=== PATIENT | female | born 1950 | race Caucasian/White ===

== ENCOUNTER → 2017-11-06 | Outpatient (CLI) | payer MEDICARE, OTHER | END | disposition home or self-care (01) | LOC: NUC 10:33 | DX: E05.20 Thyrotoxicosis with toxic multinodular goiter without thyrotoxic crisis or storm (principal) | CPT/HCPCS: 78014; A9516 ==

== ENCOUNTER → 2018-02-19 | Outpatient (CLI) | payer MEDICARE, OTHER | END | disposition home or self-care (01) | LOC: HKI 15:16 | DX: M17.12 Unilateral primary osteoarthritis, left knee (principal) | CPT/HCPCS: 20610; 73564-50 ==

== ENCOUNTER → 2018-06-08 | Outpatient (CLI) | payer MEDICARE, OTHER | END | disposition home or self-care (01) | LOC: HKI 13:48 | DX: M17.12 Unilateral primary osteoarthritis, left knee (principal) | CPT/HCPCS: 77073 ==

== ENCOUNTER 2018-06-19 05:15 | Observation (INO) | payer MEDICARE, OTHER ==
[2018-06-19] MEDS: TRANEXAMIC ACID 1GM/100ML(PMX) 100 ML AT CLOSING IVPB (06:00)
[2018-06-19] MEDS: CEFAZOLIN 2 GM/50 ML (PMX) 50 ML IVPB ×3 (06:00→23:53)
[2018-06-19] MEDS: LACTATED RINGER'S 1,000 ML IV* ×2 (06:00→14:00)
[2018-06-19] MEDS ORDERED: ACETAMINOPHEN 500 MG TAB PO (06:00)
[2018-06-19] MEDS: ACETAMINOPHEN 1000MG/100ML IV 100 ML IVPB (06:15)
[2018-06-19] MEDS: DEXAMETHASONE 4 MG/ML 1 ML INJ IV (06:16)
[2018-06-19] MEDS: ONDANSETRON 4 MG INJ IV ×2 (06:16→12:12)
[2018-06-19] MEDS: LANSOPRAZOLE 30 MG CAP PO (06:16)
[2018-06-19] MEDS: CELECOXIB 200 MG CAP PO (06:17)
[2018-06-19] MEDS: TRANEXAMIC ACID 1GM/100ML(PMX) 100 ML PRE-OP IVPB (07:29)
[2018-06-19] MEDS ORDERED: EPHEDrine SULFATE 50 MG/5 ML SYG IV (07:30)
[2018-06-19] MEDS ORDERED: LABETALOL HCL 20MG INJ IV (07:30)
[2018-06-19] MEDS ORDERED: HYDROmorphONE 1 MG/5 ML IV SYRINGE IV ×2 (07:30)
[2018-06-19] MEDS ORDERED: TRANEXAMIC ACID 1GM/100ML(PMX) 200 ML (07:30)
[2018-06-19] MEDS ORDERED: hydrALAzine 20 MG INJ IV (07:30)
[2018-06-19] MEDS ORDERED: DIPHENHYDRAMINE 50 MG INJ IV ×2 (07:30→11:30)
[2018-06-19] MEDS ORDERED: MEPERIDINE 25 MG INJ IV (07:30)
[2018-06-19] MEDS ORDERED: PROCHLORPERAZINE 10 MG INJ IV (07:30)
[2018-06-19] MEDS ORDERED: PROPOFOL 20 ML (07:31)
[2018-06-19] MEDS ORDERED: LIDOCAINE 2% (SDV) 5 ML INJ (07:31)
[2018-06-19] MEDS ORDERED: MIDAZOLAM 1 MG/ML 2 ML INJ (07:32)
[2018-06-19] MEDS ORDERED: FENTAnyl 50 MCG/ML VIAL ×2 (07:44→09:45)
[2018-06-19] MEDS ORDERED: CEFAZOLIN 1 GM INJ (07:50)
[2018-06-19] MEDS ORDERED: PHENYLephrine (100 MCG/ML) 5ML SYG (08:10)
[2018-06-19] MEDS ORDERED: ROPIVACAINE 0.2% 20 ML VIAL (10:56)
[2018-06-19] MEDS ORDERED: BETHANECHOL 25 MG TAB PO (11:30)
[2018-06-19] MEDS ORDERED: NA PHOSPHATE/BIPHOS 133 ML ENEMA PR (11:30)
[2018-06-19] MEDS ORDERED: NACL 0.9% 3 ML SYG IV (11:30)
[2018-06-19] MEDS ORDERED: NALOXONE (0.4 MG/ML) INJ IV (11:30)
[2018-06-19] MEDS: DOCUSATE SODIUM 100 MG CAP PO (11:53)
[2018-06-19] MEDS: LACTATED RINGER'S 1,000 ML IV ×2 (11:54→23:54)
[2018-06-19] MEDS ORDERED: CEFAZOLIN 2 GM/50 ML (PMX) 50 ML IVPB (12:00)
[2018-06-19] MEDS: FENTAnyl 50 MCG/ML VIAL IV (12:12)
[2018-06-19] MEDS: HYDROmorphONE 1 MG/5 ML IV SYRINGE IV (12:12)
[2018-06-19] MEDS: HYDROmorphONE 1 MG/ML SYG IV (15:12)
[2018-06-19] MEDS: oxyCODONE 5 MG TAB PO (20:48)
[2018-06-19] MEDS: NORTRIPTYLINE 10 MG CAP PO (20:49)
[2018-06-19] MEDS: ATORVASTATIN 20 MG TAB PO (20:49)
[2018-06-19] MEDS: GABAPENTIN 300 MG CAP PO (20:49)
[2018-06-20 05:06] LABS: ADD MAN DIFF? NO
[2018-06-20 05:07] LABS: BASOPHILS % 0.2 % (0.0-2.0); HEMATOCRIT 31.2 % (37.0-47.0); HEMOGLOBIN 9.7 g/dl (12.0-16.0); LYMPHOCYTES # 1.5 10^3/ul (0.8-2.9); LYMPHOCYTES % 11.6 % (15.0-51.0); MEAN CORPUSCULAR HEMOGLOBIN 28.4 pg (29.0-33.0); MEAN CORPUSCULAR HGB CONC 31.1 g/dl (32.0-37.0); MEAN CORPUSCULAR VOLUME 91.2 fl (82.0-101.0); MEAN PLATELET VOLUME 10.5 fl (7.4-10.4); MONOCYTE # 0.7 10^3/ul (0.3-0.9); MONOCYTES % 5.2 % (0.0-11.0); NEUTROPHIL # 10.7 10^3/ul (1.6-7.5); NEUTROPHILS % 82.7 % (39.0-77.0); PLATELET COUNT 299 10^3/UL (140-415); RED BLOOD COUNT 3.42 10^6/ul (4.20-5.40); RED CELL DISTRIBUTION WIDTH 13.3 % (11.5-14.5)
[2018-06-20 05:07] LABS: WHITE BLOOD COUNT 12.9 10^3/ul (4.8-10.8)
[2018-06-20 05:36] LABS: CHOLESTEROL 114 mg/dl (100-200); HDL CHOLESTEROL 57 mg/dl (35-98); LDL CHOLESTEROL,CALCULATED 39 mg/dl; MAGNESIUM 2.1 mg/dl (1.7-2.5); TRIGLYCERIDES 92 mg/dl (0-149)
[2018-06-20 05:36] LABS: PHOSPHORUS 3.6 mg/dl (2.5-4.9)
[2018-06-20 05:41] LABS: ANION GAP 9 (5-13); BLOOD UREA NITROGEN 9 mg/dl (7-20); CALCIUM 8.9 mg/dl (8.4-10.2); CARBON DIOXIDE 27 mmol/L (21-31); CHLORIDE 104 mmol/L (97-110); CREATININE 0.66 mg/dl (0.44-1.00); Estimated GFR > 60 mL/min (>60); GLUCOSE 130 mg/dl (70-220); POTASSIUM 4.4 mmol/L (3.5-5.1); SODIUM 140 mmol/L (135-144)
[2018-06-20 05:52] LABS: FREE T4 (FREE THYROXINE) 0.74 ng/dl (0.78-2.44)
[2018-06-20 05:55] LABS: ADD UMIC YES; UR ASCORBIC ACID NEGATIVE (NEGATIVE); UR BILIRUBIN (Dip) NEGATIVE (NEGATIVE); UR BLOOD (Dip) NEGATIVE (NEGATIVE); UR CLARITY CLEAR (CLEAR); UR COLOR YELLOW (YELLOW); UR GLUCOSE (Dip) NEGATIVE (NEGATIVE); UR KETONES (Dip) NEGATIVE (NEGATIVE); UR LEUKOCYTE ESTERASE (Dip) TRACE Leu/ul (NEGATIVE); UR NITRITE (Dip) NEGATIVE (NEGATIVE); UR RBC 2 /HPF (0-5); UR SPECIFIC GRAVITY (Dip) 1.012 (1.003-1.030); UR TOTAL PROTEIN (Dip) NEGATIVE (NEGATIVE); UR UROBILINOGEN (Dip) NEGATIVE (NEGATIVE); UR WBC 2 /HPF (0-5)
[2018-06-20 06:06] LABS: THYROID STIMULATING HORMONE 0.904 MIU/L (0.465-4.680)
[2018-06-20] MEDS: oxyCODONE 5 MG TAB PO ×3 (06:17→21:17)
[2018-06-20] MEDS: METHIMAZOLE 5 MG TAB PO (09:13)
[2018-06-20] MEDS: ASCORBIC ACID 500 MG TAB PO (09:13)
[2018-06-20] MEDS: ASPIRIN (EC) 81 MG TAB PO ×2 (09:13→21:21)
[2018-06-20] MEDS: DOCUSATE SODIUM 100 MG CAP PO ×2 (09:13→21:18)
[2018-06-20] MEDS: CALCIUM CARBONATE (600 MG CA) TAB PO (09:14)
[2018-06-20] MEDS: CEFAZOLIN 2 GM/50 ML (PMX) 50 ML IVPB (09:14)
[2018-06-20] MEDS: HYDROmorphONE 1 MG/ML SYG IV (09:22)
[2018-06-20] MEDS ORDERED: ONDANSETRON 4 MG INJ IV (11:30)
[2018-06-20] MEDS: LACTATED RINGER'S 1,000 ML IV (12:05)
[2018-06-20] MEDS: DEXAMETHASONE 4 MG/ML 1 ML INJ IV (13:45)
[2018-06-20] MEDS: ACETAMINOPHEN 500 MG TAB PO ×2 (13:45→21:17)
[2018-06-20] MEDS: ATORVASTATIN 20 MG TAB PO (21:17)
[2018-06-20] MEDS: NORTRIPTYLINE 10 MG CAP PO (21:17)
[2018-06-20] MEDS: SENNA/DOCUSATE NA (8.6MG/50MG) TAB PO (21:17)
[2018-06-20] MEDS: GABAPENTIN 300 MG CAP PO (21:17)
[2018-06-21] MEDS: LACTATED RINGER'S 1,000 ML IV ×2 (00:35→13:05)
[2018-06-21] MEDS: PANTOPRAZOLE (EC) 40 MG TAB PO (05:40)
[2018-06-21] MEDS: ACETAMINOPHEN 500 MG TAB PO ×3 (05:41→21:46)
[2018-06-21 05:43] LABS: ADD MAN DIFF? NO
[2018-06-21 05:53] LABS: WHITE BLOOD COUNT 12.6 10^3/ul (4.8-10.8)
[2018-06-21 05:53] LABS: BASOPHILS % 0.2 % (0.0-2.0); LYMPHOCYTES # 1.4 10^3/ul (0.8-2.9); LYMPHOCYTES % 11.2 % (15.0-51.0); MEAN CORPUSCULAR HEMOGLOBIN 29.1 pg (29.0-33.0); MEAN CORPUSCULAR HGB CONC 32.1 g/dl (32.0-37.0); MEAN CORPUSCULAR VOLUME 90.6 fl (82.0-101.0); MEAN PLATELET VOLUME 11.2 fl (7.4-10.4); MONOCYTE # 0.8 10^3/ul (0.3-0.9); MONOCYTES % 6.5 % (0.0-11.0); NEUTROPHIL # 10.2 10^3/ul (1.6-7.5); NEUTROPHILS % 81.5 % (39.0-77.0); PLATELET COUNT 271 10^3/UL (140-415); RED BLOOD COUNT 3.09 10^6/ul (4.20-5.40); RED CELL DISTRIBUTION WIDTH 13.4 % (11.5-14.5)
[2018-06-21 06:20] LABS: ANION GAP 10 (5-13); BLOOD UREA NITROGEN 16 mg/dl (7-20); CALCIUM 9.1 mg/dl (8.4-10.2); CARBON DIOXIDE 29 mmol/L (21-31); CHLORIDE 102 mmol/L (97-110); CREATININE 0.57 mg/dl (0.44-1.00); Estimated GFR > 60 mL/min (>60); GLUCOSE 126 mg/dl (70-220); POTASSIUM 4.5 mmol/L (3.5-5.1); SODIUM 141 mmol/L (135-144)
[2018-06-21] MEDS: DOCUSATE SODIUM 100 MG CAP PO ×2 (08:59→21:35)
[2018-06-21] MEDS: ASPIRIN (EC) 81 MG TAB PO ×2 (08:59→21:36)
[2018-06-21] MEDS: SENNA/DOCUSATE NA (8.6MG/50MG) TAB PO (09:00)
[2018-06-21] MEDS: ASCORBIC ACID 500 MG TAB PO (09:00)
[2018-06-21] MEDS: CALCIUM CARBONATE (600 MG CA) TAB PO (09:00)
[2018-06-21] MEDS: MAGNESIUM HYDROXIDE 30ML CUP PO (09:00)
[2018-06-21] MEDS: METHIMAZOLE 5 MG TAB PO (09:00)
[2018-06-21] MEDS: oxyCODONE 5 MG TAB PO ×3 (09:01→19:26)
[2018-06-21] MEDS: POLYETHYLENE GLYCOL 17 GM PACKET PO ×2 (13:30→21:36)
[2018-06-21] MEDS: BISACODYL 10 MG SUPP PR (16:47)
[2018-06-21] MEDS: NORTRIPTYLINE 10 MG CAP PO (21:00)
[2018-06-21] MEDS: ATORVASTATIN 20 MG TAB PO (21:36)
[2018-06-21] MEDS: GABAPENTIN 300 MG CAP PO (21:36)
[2018-06-22] MEDS: LACTATED RINGER'S 1,000 ML IV (01:35)
[2018-06-22 05:21] LABS: ADD MAN DIFF? NO
[2018-06-22 05:35] LABS: BASOPHILS % 0.3 % (0.0-2.0); EOSINOPHILS # 0.1 10^3/ul (0.0-0.5); EOSINOPHILS % 1.4 % (0.0-7.0); HEMATOCRIT 27.1 % (37.0-47.0); HEMOGLOBIN 8.6 g/dl (12.0-16.0); LYMPHOCYTES # 2.8 10^3/ul (0.8-2.9); LYMPHOCYTES % 27.7 % (15.0-51.0); MEAN CORPUSCULAR HEMOGLOBIN 28.6 pg (29.0-33.0); MEAN CORPUSCULAR HGB CONC 31.7 g/dl (32.0-37.0); MEAN PLATELET VOLUME 10.9 fl (7.4-10.4); MONOCYTE # 0.8 10^3/ul (0.3-0.9); MONOCYTES % 7.6 % (0.0-11.0); NEUTROPHIL # 6.3 10^3/ul (1.6-7.5); NEUTROPHILS % 62.8 % (39.0-77.0); PLATELET COUNT 245 10^3/UL (140-415); RED BLOOD COUNT 3.01 10^6/ul (4.20-5.40); RED CELL DISTRIBUTION WIDTH 13.8 % (11.5-14.5)
[2018-06-22 05:44] LABS: ANION GAP 5 (5-13); BLOOD UREA NITROGEN 14 mg/dl (7-20); CALCIUM 8.1 mg/dl (8.4-10.2); CARBON DIOXIDE 31 mmol/L (21-31); CHLORIDE 101 mmol/L (97-110); CREATININE 0.51 mg/dl (0.44-1.00); Estimated GFR > 60 mL/min (>60); GLUCOSE 102 mg/dl (70-220); POTASSIUM 3.8 mmol/L (3.5-5.1); SODIUM 137 mmol/L (135-144)
[2018-06-22] MEDS: PANTOPRAZOLE (EC) 40 MG TAB PO (06:25)
[2018-06-22] MEDS: ACETAMINOPHEN 500 MG TAB PO ×2 (06:25→13:44)
[2018-06-22] MEDS: ASCORBIC ACID 500 MG TAB PO (08:53)
[2018-06-22] MEDS: ASPIRIN (EC) 81 MG TAB PO (08:53)
[2018-06-22] MEDS: DOCUSATE SODIUM 100 MG CAP PO (08:53)
[2018-06-22] MEDS: METHIMAZOLE 5 MG TAB PO (08:54)
[2018-06-22] MEDS: POLYETHYLENE GLYCOL 17 GM PACKET PO (08:54)
[2018-06-22] MEDS: CALCIUM CARBONATE (600 MG CA) TAB PO (09:00)
== END 2018-06-22 15:43 | disposition home health service (06) ==
LOC: REC 05:15 → MS1 06-20 19:39
DX: M17.12 Unilateral primary osteoarthritis, left knee (principal); E05.90 Thyrotoxicosis, unspecified without thyrotoxic crisis or storm; E78.5 Hyperlipidemia, unspecified
CPT/HCPCS: 27447; 73560; 80048; 80061; 81001; 83735; 84100; 84439; 84443; 85025; 86850; 86900; 86901; 87081; 87086; 88304; 88311; 97116; 97161; 97165; 97530; 99217

== ENCOUNTER → 2018-07-02 | Outpatient (CLI) | payer MEDICARE, OTHER | END | disposition home or self-care (01) | LOC: HKI 14:18 | DX: Z09 Encounter for follow-up examination after completed treatment for conditions other than malignant neoplasm (principal); Z96.652 Presence of left artificial knee joint | CPT/HCPCS: 73564 ==

== ENCOUNTER → 2018-07-30 | Outpatient (CLI) | payer MEDICARE, OTHER | END | disposition home or self-care (01) | LOC: HKI 14:02 | DX: Z09 Encounter for follow-up examination after completed treatment for conditions other than malignant neoplasm (principal); Z96.652 Presence of left artificial knee joint; Z79.82 Long term (current) use of aspirin | CPT/HCPCS: 73562; 73562-50 ==

== ENCOUNTER → 2018-09-03 | Outpatient (CLI) | payer MEDICARE, OTHER | END | disposition home or self-care (01) | LOC: HKI 13:41 | DX: Z47.1 Aftercare following joint replacement surgery (principal); Z96.652 Presence of left artificial knee joint | CPT/HCPCS: 73562; 73562-50 ==